=== PATIENT | male | born 1940 | race Caucasian/White ===

== ENCOUNTER 2017-09-03 11:47 | Day surgery (SDC) | payer MEDICARE, OTHER ==
[~2017-09-03 11:47] MED LIST: CHONDR SU A NA/HYALUR INTRAOC KIT (SURGICARE) ONE; KETOROLAC TROMETHAMINE 0.45% 4 DROP/0.4 ML DROPERETTE OS PRN; LIDOCAINE 1% INJ-PF (10 MG/ML) 30 ML SDV ONE; PHENYLEPHRINE/KETOROLAC 1%-0.3% 4 ML VIAL ONE
[2017-09-03] MEDS: BESIFLOXACIN HCL 0.6% OPH SUSP 5 ML BOTTLE OS PRN ×3 (12:14→13:21)
[2017-09-03] MEDS: CYCLOPENTOLATE 0.2%/PHENYLEPHRINE 1% OPH SOLN 2 ML OS PRN ×3 (12:14→12:34)
[2017-09-03] MEDS: TROPICAMIDE 1% OPH SOLN 3 ML OS PRN ×3 (12:14→12:34)
[2017-09-03] MEDS: TETRACAINE HCL 0.5% OPH SOLN 2 ML OS PRN ×3 (12:15→13:03)
[2017-09-03] MEDS ORDERED: MIDAZOLAM 2 MG/2 ML INJ ONE (12:27)
[2017-09-03] MEDS ORDERED: FENTANYL CITRATE INJ/PF 100 MCG/2 ML AMPUL ONE (12:27)
--- NOTE | 2017-09-03 19:58 | [facility] OPERATIVE REPORT E ---
[facility] Operative Report NAME: GREGORY CALVERT AGE: 77Y DATE OF SURGERY: 09/03/2017 ROOM: PREOPERATIVE DIAGNOSIS: CATARACT, LEFT EYE. POSTOPERATIVE DIAGNOSIS: CATARACT, LEFT EYE. OPERATION: Cataract extraction with intraocular lens implant of the left eye. SURGEON: DAMI YOST M.D. ANESTHESIA: Topical. TISSUE REMOVED OR ALTERED: PROCEDURE: After obtaining appropriate consent, the patient's left eye was prepped and draped in sterile fashion as well as the surgeon in a sterile manner and cataract surgery was started. First a paracentesis blade was used to make a small side-port incision. Viscoelastic was used to inflate the anterior chamber. Next a 2.4 mm incision was made with the paracentesis blade. A continuous capsulorrhexis incision was made using a cystotome and Utrata forceps. Following this hydrodissection was carried out to make the lens fully loose and mobile and it was rotated 90 degrees. Following this, a lswpxx-zoi-kbqkilb technique was used to phacoemulsify the lens with a CDE of 7.86. The remaining cortex was removed with irrigation/aspiration. Provisc was instilled into the capsular bag to inflate the bag. A SN60WF, 19.0 diopter lens was placed. The remaining viscoelastic material was removed with irrigation/aspiration. Following this, a 10-0 nylon suture was used to close the incision and it was found to be watertight. Vigamox was instilled in the eye and a protective shield was placed over the eye. The patient returned to the postoperative recovery in stable condition. DICTATING PHYSICIAN: DAMI YOST M.D. [id number] PHY#: [id number] ID: [id number] JOB#: [id number] ACCT: [id number] cc:DAMI YOST M.D. >
--- NOTE | 2017-09-03 20:03 | [facility] DISCHARGE SUMMARY E ---
[facility] Discharge Summary NAME: GREGORY CALVERT AGE: 77Y ADMITTED: 09/03/2017 DISCHARGED: 09/03/2017 HISTORY OF PRESENT ILLNESS: This is a 77-year-old male who underwent cataract extraction of the left eye. He underwent surgery because he was having trouble seeing road signs. FINAL DIAGNOSIS: Cataract, left eye. DISCHARGE INSTRUCTIONS: He is to be on a regular diet. No bending at his waist, no heavy lifting. He should use Besivance, Ilevro and Durezol at 3:00 p.m. and 8:00 p.m. and sleep with a rigid shield. I will see him for his 1-day postoperative tomorrow. DICTATING PHYSICIAN: DAMI YOST M.D. [id number] PHY#: [id number] ID: [id number] JOB#: [id number] ACCT: [id number] cc:DAMI YOST M.D. >
== END 2017-09-03 14:15 | disposition home or self-care (01) ==
LOC: SC 11:47
PROVIDERS: ATTEND Internal Medicine
PROC: 08RK3JZ Replacement of Left Lens with Synthetic Substitute, Percutaneous Approach (ICD-10-PCS; principal; 2017-09-03 13:30)
DX: H25.12 Age-related nuclear cataract, left eye (principal); H57.03 Miosis; E11.9 Type 2 diabetes mellitus without complications; I10 Essential (primary) hypertension; F17.210 Nicotine dependence, cigarettes, uncomplicated; I48.91 Unspecified atrial fibrillation; Z96.1 Presence of intraocular lens; H40.89 Other specified glaucoma
CPT/HCPCS: 66984; 82962; V2632; J2250; J3490 ×2; A9270; J3010; C9447; 142